=== PATIENT | female | born 1980 | race Hispanic/Latino ===

== ENCOUNTER 2018-02-04 08:26 | Emergency (ER) | payer SELFPAY | END 2018-02-04 09:04 | disposition left against medical advice (07) | LOC: ERS 08:26 | DX: Z53.21 Procedure and treatment not carried out due to patient leaving prior to being seen by health care provider (principal) ==

== ENCOUNTER 2018-05-21 07:39 | Emergency (ER) | payer MEDICARE, MEDICAID ==
[2018-05-21] MEDS ORDERED: ALPRAZolam 0.25 MG TAB ONE (08:33)
[2018-05-21] MEDS ORDERED: HYDROcodone/Acetaminophen 5/325 mg Tablet ONE ×3 (08:35→09:35)
--- NOTE | 2018-05-21 08:36 | RAD ---
LEFT KNEE 4 VIEWS: Date: 05/21/18 HISTORY: Fall. Left knee injury. FINDINGS: Minimally displaced, oblique fracture involves the fibular head, best demonstrated on the lateral vie w. Joint spaces are preserved. No fluid distention of the joint capsule is apparent. IMPRESSION: Left fibular head fracture. POS: [facility]
== END 2018-05-21 09:40 | disposition home or self-care (01) ==
LOC: ERS 07:39
DX: S82.832A Other fracture of upper and lower end of left fibula, initial encounter for closed fracture (principal); I10 Essential (primary) hypertension; F31.9 Bipolar disorder, unspecified; F41.9 Anxiety disorder, unspecified; F43.10 Post-traumatic stress disorder, unspecified; F17.210 Nicotine dependence, cigarettes, uncomplicated; E11.9 Type 2 diabetes mellitus without complications; W17.89XA Other fall from one level to another, initial encounter

== ENCOUNTER 2018-07-08 03:56 | Emergency (ER) | payer MEDICARE, MEDICAID | END 2018-07-08 04:20 | LOC: ERS 03:56 | DX: F91.9 Conduct disorder, unspecified (principal); Z02.89 Encounter for other administrative examinations; E11.9 Type 2 diabetes mellitus without complications; I10 Essential (primary) hypertension; F41.9 Anxiety disorder, unspecified; F31.9 Bipolar disorder, unspecified; F43.10 Post-traumatic stress disorder, unspecified; F17.210 Nicotine dependence, cigarettes, uncomplicated; Z71.6 Tobacco abuse counseling | CPT/HCPCS: 99406 ==